=== PATIENT | female | born 1945 | race Caucasian/White ===

== ENCOUNTER → 2023-11-04 13:27 | Outpatient (REF) | payer MEDICARE, BC, SELFPAY | LOC: DHCBS HW 13:27 | PROVIDERS: ATTENDING PHYSICIAN Internal Medicine Cardiovascular Disease; FAMILY PHYSICIAN Family Medicine | DX: I63.9 Cerebral infarction, unspecified (principal) | CPT/HCPCS: 93306 ==

== ENCOUNTER → 2023-11-06 12:51 | Outpatient (REF) | payer MEDICARE, BC, SELFPAY | LOC: RAD 12:51 | PROVIDERS: ATTENDING PHYSICIAN Internal Medicine Cardiovascular Disease; FAMILY PHYSICIAN Family Medicine | DX: I63.9 Cerebral infarction, unspecified (principal); I65.23 Occlusion and stenosis of bilateral carotid arteries | CPT/HCPCS: 93880 ==

== ENCOUNTER 2025-02-13 10:06 | Emergency (ER) | payer MEDICARE, BC, SELFPAY ==
[2025-02-13 10:13] VITALS: BP 205/95
--- NOTE | 2025-02-13 11:05 | ED.GENMED ---
History of Present Illness
General
Chief Complaint: Musculo-Skeletal Complaint
Source: patient
Exam Limitations: none
Time Seen by Provider: 02/13/25 10:42
Nursing documentation reviewed up to this point in time: agreed with
History of Present Illness
History of Present Illness:
Patient presents ED secondary to persistent left foot pain, after twisting her foot when she got up from sofa last night. Patient denies any other injuries. Denies loss of sensation or weakness. Patient has been able to walk, but very gingerly.
Past History
Past History
ED Past Medical History: HTN and Hypercholesterolemia
Social History
Tobacco: Non-smoker
Living: with family
Review of Systems
Review of Systems
Allergies reviewed?: Yes
All Other Systems: ROS reviewed and negative except as documented in HPI and ROS
Constitutional: Reports no symptoms; Denies fever
Musculoskeletal: Reports other (Left foot pain with bruising)
Skin: Reports no symptoms
Neurological: Reports no symptoms
Phy Exam
Physical Exam
Physical Exam:
Physical Exam
General: no apparent distress, not acutely ill. afebrile
Head: nc/at. eomi
Neck: supple. normal range of motion
Neuro: alert and oriented x 3. no focal neurological deficits
Skin: no rash
Psychiatric: well kept. interactive and cooperative
Extremities: ecchymosis/tenderness noted over left mid 5th metatarsal bone, without deformity
Course
Orders/Labs/Results
Orders:
Orders
02/13/25 10:15
Foot, Left 3 View [CR Foot - Left Min 3 Views] Urgent
Comment:
Reason For Exam: injury, pain, bruising
Vital Signs
Initial and Last Documented VS:
Initial Vital Signs
Temp Pulse Resp BP Pulse Ox
97.1 F 56 22 205/95 97
02/13/25 10:13 02/13/25 10:13 02/13/25 10:13 02/13/25 10:13 02/13/25 10:13
Last Documented Vital Signs
Temp Pulse Resp BP Pulse Ox
97.1 F 58 16 178/85 98
02/13/25 10:13 02/13/25 11:29 02/13/25 11:29 02/13/25 11:29 02/13/25 11:29
MDM/Problems Addressed
MDM/Problems Addressed:
X-ray report reviewed and discussed with patient. Patient will be provided with supportive measures along with referral to [facility] orthopedic surgery, with whom he has been evaluated in the past, for reevaluation next week.
Recommended ortho boot, but opted for yudith wrap/post op shoe, as she is attending graduation.
*Critical Care Note
Total Time (30-74mins, 75-104mins- exclusive of procedures): Not Applicable
ED Attending Note
-
Portions of this chart may have been created with voice recognition software.� Occasional wrong word or��sound alike� substitutions may have occurred due to the inherent limitations of voice recognition software.
Discharge Plan
Departure
Patient Disposition: Home (Routine Discharge)
Date of Disposition: 02/13/25
Time of Disposition: 11:07
Patient with high blood pressure during this ER visit?: Yes
Condition: Good
Discharge Problem:
Foot fracture, left
Instructions: Foot Fracture ED
Prescriptions:
No Action
terbinafine HCl [Lamisil AT] 12 GM cream
1 applic TP Q12H Qty: 15 0RF
miconazole nitrate [Antifungal (miconazole)] 71 GM powder
71 gm TP Q12H Qty: 1 0RF
Referrals:
Chandler Reis DPM [Active] -
Activity Restrictions/Additional Instructions:
As discussed, please follow-up with referred [facility] orthopedic surgery group for further evaluation and treatment.
Interventions
Interventions:
*Risk Screen - Suicide Last Done: 02/13/25 10:13
*General Assessment Last Done: 02/13/25 10:13
*Neglect/Abuse Screening Last Done: 02/13/25 10:13
*ED- Fall Risk Assessment Last Done: 02/13/25 11:11
*ED COVID-19 Vaccine History Last Done: 02/13/25 11:11
*Nursing Disposition Last Done: 02/13/25 11:11
ED-Musculoskeletal Assessment Last Done: 02/13/25 11:11
Discharge Date and Time
Discharge Date/Time: 02/13/25 11:30
Print Language: MAORI
[2025-02-13 11:29] VITALS: BP 178/85
== END 2025-02-13 11:30 | disposition home or self-care (01) ==
LOC: EMR 10:06
PROVIDERS: EMERGENCY PHYSICIAN Emergency Medicine; FAMILY PHYSICIAN Family Medicine
DX: S92.352A Displaced fracture of fifth metatarsal bone, left foot, initial encounter for closed fracture (principal); X50.1XXA Overexertion from prolonged static or awkward postures, initial encounter; I10 Essential (primary) hypertension; E78.00 Pure hypercholesterolemia, unspecified
CPT/HCPCS: 99283; 73630